=== PATIENT | male | born 1940 | race Caucasian/White ===

== ENCOUNTER → 2017-12-25 | Outpatient (REF) | payer MEDICARE ==
[2017-12-25 18:45] LABS: APPEARANCE, URINE CLEAR (CLEAR); BACTERIA, URINE AUTO NEGATIVE (NEGATIVE); BILIRUBIN, URINE AUTO NEGATIVE (NEGATIVE); BLOOD, URINE BLOOD NEGATIVE (NEGATIVE); COLOR, URINE YELLOW (YELLOW); GLUCOSE, URINE (UA) AUTO NEGATIVE (NEGATIVE); KETONE, URINE AUTO NEGATIVE (NEGATIVE); LEUKOCYTE ESTERASE, URINE AUTO NEGATIVE (NEGATIVE); NITRITE, URINE AUTO NEGATIVE (NEGATIVE); PROTEIN, URINE AUTO NEGATIVE (NEGATIVE); RBC, URINE AUTO 2 /HPF (0-3); SPECIFIC GRAVITY URINE AUTO 1.012 (1.002-1.035); SQUAMOUS EPITHELIAL CELL UR AU 0 /HPF (0-6); UROBILINOGEN, URINE AUTO 0.2 mg/dL (0.0-2.0); WBC, URINE AUTO 0 /HPF (0-3)
== END ==
LOC: M LAB REF 17:07
DX: R97.20 Elevated prostate specific antigen [PSA] (principal)
CPT/HCPCS: 81001

== ENCOUNTER → 2018-12-06 | Outpatient (REF) | payer MEDICARE | LOC: M LAB REF 11:40 | PROVIDERS: ATTEND Nurse Practitioner Family | DX: N39.0 Urinary tract infection, site not specified (principal) ==

== ENCOUNTER → 2019-10-22 | Outpatient (REF) | payer MEDICARE | LOC: M LAB REF 13:56 | PROVIDERS: ATTEND Physician Assistant Medical | DX: F32.89 Other specified depressive episodes (principal) ==

== ENCOUNTER → 2020-01-01 | Outpatient (CLI) | payer MEDICARE ==
[~2020-01-01] MED LIST: GASTROGRAFIN SOLUTION 30ML (Q9963) As Ordered ONE; ISOVUE-370 76% 100ML VIAL As Ordered ONE
--- NOTE | 2020-01-01 16:58 | REP ---
INDICATION: ABNORMAL XRAY, POSSIBLE SMALL BOWEL OBSTRUCTION. Degenerative changes in the lumbar lower thoracic spine, there posterior elements but without compression fracture or destructive lesion. Visualized ribs intact. Sacrum pelvis and hips show mild degenerative change without destructive lesion. COMPARISON: CT without 12/26/2015. TECHNIQUE: CT abdomen and pelvis performed without IV contrast. CT abdomen pelvis performed with IV contrast as well, following intravenous administration of 100 cc of Isovue 370. Sagittal, coronal and 3D MIP reconstruction images are performed. Oral Gastrografin mixture per our protocol used for bowel contrast. FINDINGS: Lung bases: Unremarkable. Liver: A few subcentimeter hypodensities are scattered in the liver too small to characterize but consistent with benign findings. Per radiologic consents is, no follow up needed for these. No biliary dilatation or adjacent ascites. Gallbladder: Unremarkable. Spleen: Normal. Adrenals: Normal. Pancreas: Normal. Kidneys: There is no hydronephrosis, stone or solid mass. There are small cysts in the right kidney and extrarenal pelvis bilaterally. Small and large bowel: Prior of hiatal hernia repair with surgical clips again seen. Stomach well distended with oral contrast. Proximal small bowel loops are contrast filled with few air-fluid levels. There is interposition of small bowel loops and hepatic flexure between the anterior margin of the liver in the anterior lower chest wall. This is unchanged. No right upper quadrant there is a loop of small bowel with the focal stricture best seen on image 72 be on which caliber change of small bowel is noted. This suggest a stricture and ileus or partial bowel obstruction. Small bowel loops are up to 3.7 cm in diameter and a few shows slightly thickened castrejon. These are centrally in the region of the umbilicus. Or distal loops have normal caliber and or fluid-filled without distention. There is diverticulosis of the distal left colon and sigmoid without diverticulitis. I see no colitis, colonic stricture or mass. Scattered stool and gas in the colon without dilatation those loops. Free fluid: There is no ascites and no evidence of perforation or free air. No pneumatosis. Adenopathy: None. Appendix: No inflammatory changes about the right colon and cecum. Appendix not definitely visualized. Osseous structures: There are degenerative changes in the spine greatest at L4-5 and largest syndesmophytes and osteophytes in the lower thoracic region. No destructive lesion or compression deformity. Some facet arthritis. Minor degenerative changes sacrum pelvis and hips. Pelvis: No pelvic mass or free fluid prostate enlarged indenting the bladder base. No distal ureteral dilatation or stone. No colonic or sigmoid diverticulosis/diverticulitis. Normal caliber small bowel loops of the ileum and distal ileum. Proximal ileum and jejunum with mildly dilated loops. Fullness of the right inguinal canal with omental fat but no bowel herniation. Small bowel loops are noted at the superior end of the right inguinal canal but not entering it or obstructing. IMPRESSION: 1. Proximal small bowel loops are mildly dilated. There is a moderate retained fluid in the stomach from oral contrast a mild stricture is seen in the right abdomen on image 72 of series 3 L1 beyond which small bowel loops have more normal caliber. Few of the proximal loops have some wall thickening or edema. No mass or adenopathy. There is colonic and small bowel loops interposition between the anterior upper abdominal/chest wall and right lobe of the liver as a common anatomic variant. 2. Omental fat distending the left inguinal canal without bowel herniation. Loops of small-bowel near the proximal right inguinal canal without evidence for obstruction. No ventral hernia. 3. Prior hiatal hernia surgery. No other significant finding. <Electronically signed by Shad Loera > 01/01/20 [id number]
== END ==
LOC: M RAD 13:14
PROVIDERS: ATTEND Internal Medicine Gastroenterology
DX: K56.609 Unspecified intestinal obstruction, unspecified as to partial versus complete obstruction (principal)
CPT/HCPCS: 74178; Q9963; Q9967

== ENCOUNTER → 2020-01-01 | Outpatient (CLI) | payer MEDICARE | LOC: M LABSMTC 12:43 | PROVIDERS: ATTEND Internal Medicine Gastroenterology | DX: Z20.828 Contact with and (suspected) exposure to other viral communicable diseases (principal) ==

== ENCOUNTER → 2020-09-21 | Outpatient (CLI) | payer MEDICARE ==
--- NOTE | 2020-09-21 16:37 | REP ---
INDICATION: PAIN. COMPARISON: None. TECHNIQUE: Five views FINDINGS: The bones are demineralized. The lateral view suggests possible talar compression, however, it is not a perfect lateral. The mortise is intact. There is diffuse soft tissue swelling. There is a small plantar calcaneal heel spur. IMPRESSION: Findings and limitations as described above. I cannot completely rule out the possibility of an age undetermined talar compression fracture. CT is recommended. <Electronically signed by David Monroe > 09/21/20 [id number]
--- NOTE | 2020-09-21 17:02 | REP ---
INDICATION: PAIN. COMPARISON: CTA/P 01/01/2020 in bone window settings.. TECHNIQUE: Five views FINDINGS: These five views of the lumbosacral spine show showed Marshall degenerative disc change with discogenic endplate sclerosis and vacuum phenomenon at L4-5 with severe narrowing of the disc space. There is extensive facet arthropathy at L4-5 and L5-S1 slightly less at L3-4 disc space is narrowed at all other levels to a mild degree. No compression deformity or destructive lesion. There are vascular calcifications of the aorta iliac region. Multiple metallic surgical fasteners coiled spring appearance at the GE junction on the left. Likely related to hernia surgery. These are unchanged from the prior CT pedicles, spinous and transverse processes are grossly intact there is some levoconvex curve at the L4-5 level. See no compression deformity or destructive lesion in the spine. SI joints show some sclerosis the iliac greater than sacral margin and right greater than left. The bones are demineralized. IMPRESSION: Degenerative facet and degenerative disc changes throughout the lumbar spine as described, greatest at the L4-5 level. There is certainly progression at the L4-5 with discogenic endplate sclerosis and spurring greater than on the CT in January 16. No compression deformities. Bones demineralized. <Electronically signed by Shad Loera > 09/21/20 [id number]
== END ==
LOC: M WUC 15:22
PROVIDERS: ATTEND Physician Assistant Medical
DX: M25.572 Pain in left ankle and joints of left foot (principal); M51.36 Other intervertebral disc degeneration, lumbar region; M51.37 Other intervertebral disc degeneration, lumbosacral region; M25.78 Osteophyte, vertebrae

== ENCOUNTER → 2020-10-05 | Outpatient (CLI) | payer MEDICARE ==
[2020-10-05 15:32] LABS: BASO % 0.5 % (0.0-1.0); EOS # 0.3 10^3/uL (0.0-0.5); EOS % 4.8 % (0.0-3.0); HEMATOCRIT 38.9 % (42.0-52.0); HEMOGLOBIN 12.5 g/dl (13.5-17.5); LYMPH % 14.7 % (24.0-44.0); MEAN CORPUSCULAR HEMOGLOBIN 33.6 pg (27.0-33.0); MEAN CORPUSCULAR HGB CONC 32.1 g/dl (32.0-36.5); MEAN CORPUSCULAR VOLUME 104.6 fl (80.0-96.0); MONO # 0.5 10^3/uL (0.0-0.8); MONO % 8.3 % (2.0-8.0); NEUTROPHILS # 4.6 10^3/uL (1.5-8.5); NEUTROPHILS % 71.5 % (36.0-66.0); PLATELET COUNT, AUTOMATED 135 10^3/uL (150-450); RED BLOOD COUNT 3.72 10^6/uL (4.30-6.10); WHITE BLOOD COUNT 6.5 10^3/uL (4.0-10.0)
[2020-10-05 16:05] LABS: C REACTIVE PROTEIN QUANTITATIV < 0.30 MG/DL (0.00-0.30); URIC ACID 6.3 MG/DL (3.5-7.2)
[2020-10-05 16:07] LABS: ERYTHROCYTE SEDIMENTATION RATE 12 mm/hr (0-20)
[2020-10-06 09:40] LABS: RHEUMATOID FACTOR QUANT < 10.0 IU/ML (<15.0)
[2020-10-07 20:09] LABS: Lyme Disease IgG/IgM Antibodie <0.91 ISR (0.00-0.90); Lyme Disease IgM Ab Quantitati <0.80 index (0.00-0.79)
== END ==
LOC: M LAB 14:22
PROVIDERS: ATTEND Physician Assistant
DX: M25.572 Pain in left ankle and joints of left foot (principal)

== ENCOUNTER → 2021-08-05 | Outpatient (REF) | payer MEDICARE | LOC: M LAB REF 16:08 | PROVIDERS: ATTEND Internal Medicine | DX: F32.9 Major depressive disorder, single episode, unspecified (principal) ==

== ENCOUNTER → 2021-09-06 | Outpatient (CLI) | payer MEDICARE | LOC: M RAD 11:14 | DX: M54.16 Radiculopathy, lumbar region (principal) ==

== ENCOUNTER → 2021-09-24 | Outpatient (REF) | payer MEDICARE | LOC: M LAB REF 12:39 | PROVIDERS: ATTEND Registered Nurse | DX: M54.50 Low back pain, unspecified (principal) ==

== ENCOUNTER → 2021-11-22 | Outpatient (REF) | payer MEDICARE | LOC: M LAB REF 16:00 | PROVIDERS: ATTEND Internal Medicine | DX: F32.89 Other specified depressive episodes (principal); Z51.81 Encounter for therapeutic drug level monitoring ==

== ENCOUNTER → 2022-01-04 | Outpatient (CLI) | payer MEDICARE ==
[~2022-01-04] MED LIST changes: -GASTROGRAFIN SOLUTION 30ML (Q9963) As Ordered ONE; +GASTROGRAFIN SOLUTION 30ML As Ordered ONE
== END ==
LOC: M RAD 07:51
PROVIDERS: ATTEND Internal Medicine Gastroenterology
DX: R14.0 Abdominal distension (gaseous) (principal)
CPT/HCPCS: 74177; Q9963; Q9967

== ENCOUNTER → 2022-02-07 | Outpatient (REF) | payer MEDICARE ==
[2022-02-07 16:40] LABS: APPEARANCE, URINE MANUAL CLEAR (CLEAR); COLOR, URINE MANUAL YELLOW (YELLOW); SPECIFIC GRAVITY,URINE MANUAL 1.015 (1.002-1.035)
[2022-02-07 16:41] LABS: BILIRUBIN, URINE MANUAL NEGATIVE (NEGATIVE); BLOOD URINE MANUAL NEGATIVE (NEGATIVE); GLUCOSE, URINE (UA) MANUAL NEGATIVE (NEGATIVE); KETONE, URINE MANUAL NEGATIVE (NEGATIVE); LEUKOCYTE ESTERASE, URINE MAN NEGATIVE (NEGATIVE); NITRITE, URINE MANUAL NEGATIVE (NEGATIVE); PROTEIN, URINE MANUAL TRACE mg/dL (NEGATIVE); UROBILINOGEN, URINE MANUAL NORMAL (NORMAL)
[2022-02-07 17:15] LABS: BACTERIA, URINE NONE SEEN; HYALINE CAST, URINE NONE SEEN /lpf (0-1); RBC, URINE NONE SEEN /hpf (0-3); SQUAMOUS EPITHELIAL CELL URINE SMALL AMOUNT /hpf (SMALL AMT); WBC, URINE NONE SEEN /hpf (0-3)
== END ==
LOC: M LAB REF 16:06
PROVIDERS: ATTEND Internal Medicine
DX: Z01.818 Encounter for other preprocedural examination (principal); F32.89 Other specified depressive episodes; Z79.899 Other long term (current) drug therapy

== ENCOUNTER → 2022-04-21 | Outpatient (CLI) | payer MEDICARE | LOC: M RAD 14:05 | PROVIDERS: ATTEND Internal Medicine | DX: G45.3 Amaurosis fugax (principal) ==

== ENCOUNTER → 2022-05-03 | Outpatient (REF) | payer MEDICARE ==
[2022-05-03 18:07] LABS: APPEARANCE, URINE CLEAR (CLEAR); BACTERIA, URINE AUTO NEGATIVE (NEGATIVE); BILIRUBIN, URINE AUTO NEGATIVE (NEGATIVE); BLOOD, URINE BLOOD 3+ (NEGATIVE); COLOR, URINE YELLOW (YELLOW); GLUCOSE, URINE (UA) AUTO NEGATIVE (NEGATIVE); KETONE, URINE AUTO NEGATIVE (NEGATIVE); LEUKOCYTE ESTERASE, URINE AUTO NEGATIVE (NEGATIVE); NITRITE, URINE AUTO NEGATIVE (NEGATIVE); PROTEIN, URINE AUTO NEGATIVE (NEGATIVE); RBC, URINE AUTO 173 /HPF (0-3); SPECIFIC GRAVITY URINE AUTO 1.012 (1.002-1.035); SQUAMOUS EPITHELIAL CELL UR AU 0 /HPF (0-6); UROBILINOGEN, URINE AUTO 0.2 mg/dL (0.0-2.0); WBC, URINE AUTO 17 /HPF (0-3)
== END ==
LOC: M LAB REF 17:03
PROVIDERS: ATTEND Internal Medicine
DX: R35.1 Nocturia (principal); R31.9 Hematuria, unspecified

== ENCOUNTER → 2022-05-12 | Outpatient (CLI) | payer MEDICARE | LOC: M PLARAD 10:55 | PROVIDERS: ATTEND Internal Medicine | DX: G45.3 Amaurosis fugax (principal); R55 Syncope and collapse ==

== ENCOUNTER 2022-11-25 13:03 | Day surgery (SDC) | payer MEDICARE ==
[2022-11-25] VITALS (7 sets, daily range): BP systolic 127–149; BP diastolic 69–85; TEMP 96.5–97.7; O2SAT 92–97
[~2022-11-25] VITALS: Ht 175.3 cm; Wt 84.0 kg
[~2022-11-25 13:03] MED LIST changes: +**UNRESOLVED NON-FORMULARY MED ORDER XX SCH; +ALFU10TA3 PO; +BIOT1CAP2 PO; +CIDA500T2 PO; +CLAR10CA3 PO; +FLON1SPR; -GASTROGRAFIN SOLUTION 30ML As Ordered ONE; -ISOVUE-370 76% 100ML VIAL As Ordered ONE; +LITH300C PO; +VITA200012 PO; +VITAMIN C GUMMY PO; +ceFAZolin SOD 2 GM in IV 1 EA IV ONE; +prevagen PO
[2022-11-25] MEDS ORDERED: BAYE1TAB2 PO (13:39)
[2022-11-25] MEDS ORDERED: LR 1,000 ML IV SCH ×2 (13:55→17:35)
[2022-11-25] MEDS ORDERED: fentaNYL 100 MCG/2 ML INJECTION As Ordered ONE (15:09)
[2022-11-25] MEDS ORDERED: MIDAZOLAM INJ 2MG/2ML VIAL As Ordered ONE (15:10)
[2022-11-25] MEDS ORDERED: ONDANSETRON 4MG 2ML VIAL As Ordered ONE (15:10)
[2022-11-25] MEDS ORDERED: LIDOCAINE 2% 100MG/5ML SDV (FOR ANES.) As Ordered ONE (15:10)
[2022-11-25] MEDS ORDERED: propofoL 200 MG/20 ML VIAL As Ordered ONE ×2 (15:10→17:27)
[2022-11-25] MEDS ORDERED: LIDOCAINE 1% MDV 20ML VIAL As Ordered ONE (15:16)
[2022-11-25] MEDS ORDERED: ISOVUE-300 61% 100ML VIAL As Ordered ONE (15:17)
[2022-11-25] MEDS ORDERED: MUPIROCIN 2% OINT 22 GM TUBE As Ordered ONE (15:17)
[2022-11-25] MEDS ORDERED: ACETAMINOPHEN 1000MG 100ML IV BAG As Ordered ONE (15:58)
[2022-11-25] MEDS ORDERED: fentaNYL 100 MCG/2 ML INJECTION IV PRN (17:35)
[2022-11-25] MEDS ORDERED: ONDANSETRON 4MG 2ML VIAL IV PRN ×2 (17:35→18:50)
[2022-11-25] MEDS ORDERED: HYDROMORPHONE HCL 0.5 MG/ 0.5 ML SYRINGE IV PRN (17:35)
[2022-11-25] MEDS ORDERED: oxyCODONE 5MG TAB PO PRN (17:35)
[2022-11-25] MEDS ORDERED: ACETAMINOPHEN TAB 650MG DOSE (2X325MG) PO PRN (18:50)
[2022-11-26 04:41] VITALS: BP 162/81; TEMP 97.1; O2SAT 92
[2022-11-26 07:46] VITALS: BP 144/68; TEMP 96.9; O2SAT 98
[2022-11-26] MEDS ORDERED: CYANOCOBALAMIN 500 MCG TAB PO SCH (09:00)
[2022-11-26] MEDS ORDERED: LITHIUM CARBONATE 300 MG CAP PO SCH (21:00)
== END 2022-11-26 11:57 | disposition home or self-care (01) ==
LOC: M SDC 13:03 → M PCU 18:35 → M SDC 11-26 11:57
PROVIDERS: ATTEND Internal Medicine Cardiovascular Disease
DX: I49.5 Sick sinus syndrome (principal); Z79.899 Other long term (current) drug therapy; Z79.82 Long term (current) use of aspirin
CPT/HCPCS: 33208; 71045; 71046; 76000; 87635; 93005; C1785; C1898; J0131; J0690; J2250; J2405; J3010; Q9967

== ENCOUNTER → 2023-01-05 | Outpatient (REF) | payer MEDICARE ==
[~2023-01-05] MED LIST changes: -**UNRESOLVED NON-FORMULARY MED ORDER XX SCH; +BAYE1TAB2 PO; -ceFAZolin SOD 2 GM in IV 1 EA IV ONE
== END ==
LOC: M LAB REF 16:34
PROVIDERS: ATTEND Internal Medicine
DX: E03.9 Hypothyroidism, unspecified (principal)

== ENCOUNTER → 2023-07-07 | Outpatient (REF) | payer MEDICARE | LOC: M LAB REF 16:28 | PROVIDERS: ATTEND Internal Medicine | DX: F32.89 Other specified depressive episodes (principal) ==

== ENCOUNTER → 2023-07-18 | Outpatient (REF) | payer MEDICARE | LOC: M LAB REF 11:35 | PROVIDERS: ATTEND Internal Medicine | DX: F32.89 Other specified depressive episodes (principal) ==

== ENCOUNTER → 2023-08-22 | Outpatient (REF) | payer MEDICARE | LOC: M LAB REF 11:44 | PROVIDERS: ATTEND Internal Medicine | DX: F32.89 Other specified depressive episodes (principal) ==

== ENCOUNTER → 2023-11-21 | Outpatient (REF) | payer MEDICARE ==
[~2023-11-21] MED LIST changes: +ALFU10TA23 PO; -ALFU10TA3 PO
[2023-11-23 18:38] LABS: T P ELECTROPHORESIS SO 7.8 g/dL (6.1-8.1)
[2023-11-27 08:03] LABS: ALBUMIN SPEP 4.8 g/dL (3.8-4.8); ALPHA-1-GLOBULINS SO 0.3 g/dL (0.2-0.3); ALPHA-2-GLOBULINS SO 0.8 g/dL (0.5-0.9); BETA 2 GLOBULIN 0.4 g/dL (0.2-0.5); BETA-GLOBULIN SO 0.5 g/dL (0.4-0.6)
[2023-11-27 15:01] LABS: ALKALINE PHOSPHATASE ISO-MACR0 0 % (<=0); ALKALINE PHOSPHATASE ISO-PLAC 0 % (<=0); Alkaline Phosphatase Iso-Bone 59 % (28-66); Alkaline Phosphatase Iso-Intes 0 % (1-24); Alkaline Phosphatase Iso-Liver 41 % (25-69); TOTAL ALK PHOS 115 U/L (35-144)
== END ==
LOC: M LAB REF 16:51
PROVIDERS: ATTEND Internal Medicine
DX: R74.8 Abnormal levels of other serum enzymes (principal)

== ENCOUNTER → 2023-11-27 | Outpatient (CLI) | payer MEDICARE | LOC: M PLAIMG 12:39 | PROVIDERS: ATTEND Psychiatry & Neurology Neurology | DX: R41.1 Anterograde amnesia (principal); R53.1 Weakness; Z86.16 Personal history of COVID-19; G31.9 Degenerative disease of nervous system, unspecified ==

== ENCOUNTER → 2024-01-03 | Outpatient (REF) | payer MEDICARE ==
[2024-01-04 09:58] LABS: IRON (FE) 55 UG/DL (65-175); PERCENT SATURATION 19.1 % (19.7-50.0); TOTAL IRON BINDING CAPACITY 288 UG/DL (250-425)
[2024-01-04 09:59] LABS: FERRITIN 190.5 NG/ML (10.5-307.3)
[2024-01-04 10:00] LABS: FOLATE > 24.00 NG/ML (>5.4); VITAMIN B12 LEVEL 1924 PG/ML (211-911)
[2024-01-05 08:37] LABS: PROTEIN, TOTAL SO 6.4 g/dL (6.1-8.1)
[2024-01-08 13:18] LABS: ALBUMIN SO 3.9 g/dL (3.8-4.8); ALPHA 1 GLOBULINS SO 0.3 g/dL (0.2-0.3); ALPHA 2 GLOBULINS SO 0.7 g/dL (0.5-0.9); BETA 2 GLOBULIN SO 0.4 g/dL (0.2-0.5); BETA GLOBULIN SO 0.4 g/dL (0.4-0.6); GAMMA GLOBULINS SO 0.8 g/dL (0.8-1.7)
== END ==
LOC: M LAB REF 16:48
PROVIDERS: ATTEND Internal Medicine
DX: R74.8 Abnormal levels of other serum enzymes (principal); D64.9 Anemia, unspecified

== ENCOUNTER 2024-01-18 16:00 | Emergency (ER) | payer MEDICARE ==
[~2024-01-18] VITALS: Ht 175.3 cm; Wt 81.3 kg
[2024-01-18 19:54] VITALS: BP 140/76; TEMP 97.5; O2SAT 98
[2024-01-18] MEDS ORDERED: MIRA3350 PO (20:19)
== END 2024-01-18 20:36 | disposition home or self-care (01) ==
LOC: M ED 16:00
DX: K59.00 Constipation, unspecified (principal); R14.0 Abdominal distension (gaseous); Z79.899 Other long term (current) drug therapy; Z79.82 Long term (current) use of aspirin

== ENCOUNTER 2024-01-20 14:07 | Observation (INO) | payer MEDICARE ==
[~2024-01-20 14:07] MED LIST changes: +MIRA3350 PO
[2024-01-20 16:07] LABS: BASO % 0.2 % (0.0-1.0); EOS % 0.4 % (0.0-3.0); HEMATOCRIT 39.9 % (42.0-52.0); HEMOGLOBIN 12.8 g/dl (13.5-17.5); LYMPH # 0.8 10^3/uL (1.5-5.0); LYMPH % 9.4 % (24.0-44.0); MEAN CORPUSCULAR HEMOGLOBIN 34.2 pg (27.0-33.0); MEAN CORPUSCULAR HGB CONC 32.1 g/dl (32.0-36.5); MEAN CORPUSCULAR VOLUME 106.7 fl (80.0-96.0); MONO # 0.6 10^3/uL (0.0-0.8); MONO % 6.8 % (2.0-8.0); NEUTROPHILS # 6.7 10^3/uL (1.5-8.5); NEUTROPHILS % 82.8 % (36.0-66.0); PLATELET COUNT, AUTOMATED 159 10^3/uL (150-450); RED BLOOD COUNT 3.74 10^6/uL (4.30-6.10); WHITE BLOOD COUNT 8.1 10^3/uL (4.0-10.0)
[2024-01-20] MEDS: GASTROGRAFIN SOLUTION 30ML PO SCH (16:27)
[2024-01-20 16:40] LABS: LIPASE 32 U/L (12-53)
[2024-01-20 16:42] LABS: LITHIUM LEVEL 1.26 MMOL/L (1.0-1.20)
[2024-01-20 16:43] LABS: ALBUMIN 3.8 G/DL (3.2-5.2); ALKALINE PHOSPHATASE 136 U/L (40-129); ALT/SGPT 24 U/L (7.0-40); AST/SGOT 19 U/L (<34); BILIRUBIN,DIRECT 0.2 MG/DL (<0.4); BILIRUBIN,TOTAL 0.7 MG/DL (0.3-1.2); BLOOD UREA NITROGEN 22 MG/DL (9-23); CALCIUM LEVEL 10.6 MG/DL (8.3-10.6); CARBON DIOXIDE LEVEL 25 MMOL/L (20-31); CHLORIDE LEVEL 106 MMOL/L (98-107); CREATININE FOR GFR 1.21 MG/DL (0.70-1.30); GLOMERULAR FILTRATION RATE > 60.0 (>35); GLUCOSE, FASTING 118 MG/DL (74-106); POTASSIUM SERUM 4.2 MMOL/L (3.5-5.1); SODIUM LEVEL 139 MMOL/L (136-145); TOTAL PROTEIN 7.2 G/DL (5.7-8.2)
[2024-01-20] MEDS ORDERED: ISOVUE-370 76% 100ML VIAL As Ordered ONE (17:41)
[2024-01-20] MEDS ORDERED: FLEET ENEMA PR ONE (18:50)
[2024-01-20] MEDS: FLEET OIL RETENTION ENEMA PR PRN (19:37)
[2024-01-20] MEDS ORDERED: ESSETAB4 PO (21:50)
[2024-01-20] MEDS ORDERED: B-1225002 SL (21:50)
[2024-01-20] MEDS ORDERED: HOME MED LIST COMPLETE! XX SCH ×2 (21:55→23:20)
[2024-01-20] MEDS ORDERED: ACETAMINOPHEN 325 MG TAB PO PRN (22:05)
[2024-01-20] MEDS ORDERED: LITH300T PO (23:19)
[2024-01-21] MEDS: FLEET ENEMA PR SCH
[2024-01-21] MEDS: MIRALAX *UNIT DOSE* 17GM PACKET PO SCH (00:15)
[2024-01-21 07:33] LABS: ALBUMIN 3.6 G/DL (3.2-5.2); ALKALINE PHOSPHATASE 129 U/L (40-129); ALT/SGPT 24 U/L (7.0-40); AST/SGOT 18 U/L (<34); BILIRUBIN,TOTAL 0.8 MG/DL (0.3-1.2); BLOOD UREA NITROGEN 22 MG/DL (9-23); CALCIUM LEVEL 10.1 MG/DL (8.3-10.6); CARBON DIOXIDE LEVEL 24 MMOL/L (20-31); CHLORIDE LEVEL 107 MMOL/L (98-107); CREATININE FOR GFR 1.22 MG/DL (0.70-1.30); GLOMERULAR FILTRATION RATE > 60.0 (>35); GLUCOSE, FASTING 209 MG/DL (74-106); POTASSIUM SERUM 4.3 MMOL/L (3.5-5.1); SODIUM LEVEL 138 MMOL/L (136-145); TOTAL PROTEIN 6.8 G/DL (5.7-8.2)
[2024-01-21] MEDS ORDERED: MIRA33506 PO (07:45)
[2024-01-21] MEDS ORDERED: COLA100C5 PO (07:45)
[2024-01-21] MEDS ORDERED: ENOXAPARIN 40MG/0.4ML SYRINGE (J1650 PER 10MG) SC SCH (09:00)
[2024-01-21 09:14] VITALS: BP 130/65; TEMP 97.5; O2SAT 97
[2024-01-21] MEDS: DOCUSATE SODIUM 100MG CAPSULE PO SCH (10:52)
== END 2024-01-21 12:15 | disposition home or self-care (01) ==
LOC: M ED 14:07 → EDBD 14:07 → M ED INP 14:08
PROVIDERS: ADMIT Student in an Organized Health Care Education/Training Program; ATTEND Student in an Organized Health Care Education/Training Program
DX: K59.04 Chronic idiopathic constipation (principal); I49.5 Sick sinus syndrome; Z95.0 Presence of cardiac pacemaker; M48.00 Spinal stenosis, site unspecified; F31.9 Bipolar disorder, unspecified; Z87.891 Personal history of nicotine dependence; K56.41 Fecal impaction; Z79.899 Other long term (current) drug therapy
CPT/HCPCS: 36415; 74177; 80048; 80053; 80076; 80178; 81001; 83690; 85025; 93005; 93041; 99285; G0378; Q9963; Q9967

== ENCOUNTER → 2024-09-24 | Outpatient (REF) | payer MEDICARE ==
[~2024-09-24] MED LIST changes: +B-1225002 SL; +COLA100C5 PO; +ESSETAB4 PO; +LITH300T PO; +MIRA33506 PO
[2024-09-24 14:16] LABS: APPEARANCE, URINE CLEAR (CLEAR); BACTERIA, URINE AUTO NEGATIVE (NEGATIVE); BILIRUBIN, URINE AUTO NEGATIVE (NEGATIVE); BLOOD, URINE BLOOD NEGATIVE (NEGATIVE); GLUCOSE, URINE (UA) AUTO NEGATIVE (NEGATIVE); KETONE, URINE AUTO NEGATIVE (NEGATIVE); LEUKOCYTE ESTERASE, URINE AUTO NEGATIVE (NEGATIVE); NITRITE, URINE AUTO NEGATIVE (NEGATIVE); PROTEIN, URINE AUTO NEGATIVE (NEGATIVE); RBC, URINE AUTO 0 /HPF (0-3); SPECIFIC GRAVITY URINE AUTO 1.011 (1.002-1.035); SQUAMOUS EPITHELIAL CELL UR AU 0 /HPF (0-6); UROBILINOGEN, URINE AUTO 0.2 mg/dL (0.0-2.0); WBC, URINE AUTO 0 /HPF (0-3)
[2024-09-24 14:26] LABS: INR 0.96
== END ==
LOC: M LAB REF 14:01
PROVIDERS: ATTEND Internal Medicine
DX: Z01.818 Encounter for other preprocedural examination (principal); Z79.899 Other long term (current) drug therapy

== ENCOUNTER 2024-10-11 14:07 | Emergency (ER) | payer MEDICARE ==
[~2024-10-11] VITALS: Ht 175.3 cm; Wt 78.6 kg
[2024-10-11 14:15] VITALS: TEMP 97.3
[2024-10-11] MEDS: FUROSEMIDE 40 MG/4 ML VIAL IV ONE (18:56)
[2024-10-11] MEDS: ceFAZolin SOD 1 GM in DEXTROSE 5% (D5W) ADV/MINI-BAG 50 ML IV ONE (18:56)
[2024-10-11 19:16] LABS: ALT/SGPT 27.0 U/L (7.0-40); AST/SGOT 28.0 U/L (<34)
[2024-10-11 19:30] VITALS: BP 153/85
[2024-10-11 19:37] VITALS: O2SAT 99
[2024-10-11 19:37] LABS: LITHIUM LEVEL 1.16 MMOL/L (1.0-1.20)
[2024-10-11 19:39] LABS: INR 1.06
[2024-10-11] MEDS ORDERED: CEPH500C PO (19:51)
== END 2024-10-11 20:02 | disposition left against medical advice (07) ==
LOC: M ED 14:07
DX: R22.43 Localized swelling, mass and lump, lower limb, bilateral (principal); L03.115 Cellulitis of right lower limb; I45.81 Long QT syndrome; F31.9 Bipolar disorder, unspecified; Z79.2 Long term (current) use of antibiotics; Z79.82 Long term (current) use of aspirin; Z79.899 Other long term (current) drug therapy; Z53.9 Procedure and treatment not carried out, unspecified reason
CPT/HCPCS: 36415; 71045; 80047; 80076; 80178; 85610; 85730; 87040; 93005; 93041; 93970; 96365; 96375; 99284; J0690; J1938

== ENCOUNTER → 2024-10-15 | Outpatient (REF) | payer MEDICARE ==
[~2024-10-15] MED LIST changes: +CEPH500C PO
== END ==
LOC: M LAB REF 17:45
PROVIDERS: ATTEND Internal Medicine
DX: L03.818 Cellulitis of other sites (principal)

== ENCOUNTER → 2024-11-19 | Outpatient (REF) | payer MEDICARE | LOC: M LAB REF 14:46 | PROVIDERS: ATTEND Internal Medicine | DX: R79.82 Elevated C-reactive protein (CRP) (principal) ==

== ENCOUNTER 2025-01-02 19:28 | Observation (INO) | payer MEDICARE ==
[~2025-01-02] VITALS: Ht 175.3 cm; Wt 79.5 kg
[2025-01-02] MEDS: ACETAMINOPHEN *IV* 1,000 MG in IV 1 EA IV ONE (21:38)
[2025-01-02 21:40] LABS: BASO # 0.0 10^3/uL (0.0-0.2); BASO % 0.3 % (0.0-1.0); EOS # 0.2 10^3/uL (0.0-0.5); EOS % 2.2 % (0.0-3.0); LYMPH # 0.8 10^3/uL (1.5-5.0); LYMPH % 8.2 % (24.0-44.0); MONO # 0.9 10^3/uL (0.0-0.8); MONO % 9.2 % (2.0-8.0); NEUTROPHILS # 7.7 10^3/uL (1.5-8.5); NEUTROPHILS % 79.7 % (36.0-66.0); PLATELET COUNT, AUTOMATED 143 10^3/uL (150-450)
[2025-01-02 21:51] LABS: KETONE, URINE AUTO RFX NEGATIVE (NEGATIVE); MUCUS, URINE RFX SMALL (NEGATIVE); NITRITE, URINE AUTO RFX NEGATIVE (NEGATIVE); RBC, URINE AUTO RFX 1 /HPF (0-3); SQUAM EPITHELIAL CELL UR AURFX 0 /HPF (0-6); WBC, URINE AUTO RFX 3 /HPF (0-3)
[2025-01-02 21:52] LABS: LEUKOCYTE ESTERASE UR AUTO RFX TRACE (NEGATIVE)
[2025-01-02 22:02] LABS: ALT/SGPT 28.0 U/L (7.0-40); AST/SGOT 29.0 U/L (<34); CALCIUM LEVEL 9.0 MG/DL (8.3-10.6); CARBON DIOXIDE LEVEL 24.0 MMOL/L (20-31); CHLORIDE LEVEL 109.0 MMOL/L (98-107); CREATININE FOR GFR 1.16 MG/DL (0.70-1.30); GLOMERULAR FILTRATION RATE 61.7 (>35); POTASSIUM SERUM 4.5 MMOL/L (3.5-5.1); SODIUM LEVEL 142.0 MMOL/L (136-145)
[2025-01-02 22:04] LABS: FREE T4 0.86 NG/DL (0.89-1.76)
[2025-01-02 22:20] LABS: LITHIUM LEVEL 1.46 MMOL/L (1.0-1.20)
[2025-01-02] MEDS: NS (Normal Saline) 0.9% 1,000 ML IV ONE (22:55)
[2025-01-02] MEDS: MECLIZINE 25 MG TABLET PO ONE (23:35)
[2025-01-03 03:32] VITALS: BP 152/89; TEMP 98.6; O2SAT 97
[2025-01-03 07:22] LABS: BASO # 0.0 10^3/uL (0.0-0.2); BASO % 0.3 % (0.0-1.0); EOS # 0.4 10^3/uL (0.0-0.5); EOS % 6.2 % (0.0-3.0); LYMPH # 0.7 10^3/uL (1.5-5.0); LYMPH % 11.2 % (24.0-44.0); MONO # 0.7 10^3/uL (0.0-0.8); MONO % 10.0 % (2.0-8.0); NEUTROPHILS # 4.8 10^3/uL (1.5-8.5); NEUTROPHILS % 72.0 % (36.0-66.0); PLATELET COUNT, AUTOMATED 134 10^3/uL (150-450)
[2025-01-03 07:29] LABS: CALCIUM LEVEL 8.5 MG/DL (8.3-10.6); CARBON DIOXIDE LEVEL 23.0 MMOL/L (20-31); CHLORIDE LEVEL 109.0 MMOL/L (98-107); CREATININE FOR GFR 1.03 MG/DL (0.70-1.30); GLOMERULAR FILTRATION RATE 71.2 (>35); LITHIUM LEVEL 1.25 MMOL/L (1.0-1.20); POTASSIUM SERUM 4.0 MMOL/L (3.5-5.1); SODIUM LEVEL 141.0 MMOL/L (136-145)
[2025-01-03] MEDS: CEFDINIR 300 MG CAP PO SCH (08:31)
[2025-01-03 13:30] VITALS: BP 128/80; TEMP 98.1; O2SAT 98
[2025-01-03] MEDS ORDERED: MIRA33506 PO (15:28)
[2025-01-03] MEDS ORDERED: ASCO500C3 PO (15:28)
[2025-01-03] MEDS ORDERED: MM S100C PO (15:28)
[2025-01-03] MEDS ORDERED: CVS-161 PO (15:28)
[2025-01-03] MEDS ORDERED: HOME MED LIST COMPLETE! XX SCH (15:30)
[2025-01-03 19:58] VITALS: BP 152/73; TEMP 98.7; O2SAT 95
[2025-01-03] MEDS: PANTOPRAZOLE 40MG TAB PO SCH (20:44)
[2025-01-03] MEDS: ACETAMINOPHEN 325 MG TAB PO PRN (20:44)
[2025-01-03 21:17] VITALS: BP_SYST 146; BP_SYST 149; BP_SYST 158; BP_DIAS 73; BP_DIAS 74; BP_DIAS 82
[2025-01-04 04:11] VITALS: BP 140/96; TEMP 99.2; O2SAT 97
[2025-01-04 04:24] VITALS: BP_SYST 140; BP_SYST 151; BP_DIAS 94; BP_DIAS 96; BP_DIAS 99
[2025-01-04 06:36] LABS: BASO # 0.0 10^3/uL (0.0-0.2); BASO % 0.3 % (0.0-1.0); EOS # 0.4 10^3/uL (0.0-0.5); EOS % 5.9 % (0.0-3.0); LYMPH # 1.0 10^3/uL (1.5-5.0); LYMPH % 13.8 % (24.0-44.0); MONO # 0.7 10^3/uL (0.0-0.8); MONO % 10.2 % (2.0-8.0); NEUTROPHILS # 4.8 10^3/uL (1.5-8.5); NEUTROPHILS % 69.5 % (36.0-66.0); PLATELET COUNT, AUTOMATED 146 10^3/uL (150-450)
[2025-01-04 06:57] LABS: CALCIUM LEVEL 8.4 MG/DL (8.3-10.6); CARBON DIOXIDE LEVEL 22.0 MMOL/L (20-31); CHLORIDE LEVEL 110.0 MMOL/L (98-107); CREATININE FOR GFR 1.08 MG/DL (0.70-1.30); GLOMERULAR FILTRATION RATE 67.3 (>35); LITHIUM LEVEL 1.02 MMOL/L (1.0-1.20); MAGNESIUM LEVEL 1.9 MG/DL (1.8-2.4); POTASSIUM SERUM 4.0 MMOL/L (3.5-5.1); SODIUM LEVEL 142.0 MMOL/L (136-145)
[2025-01-04] MEDS: ENOXAPARIN 40 MG/0.4 ML SYRINGE (J1650 PER 10MG) SC SCH (08:55)
[2025-01-04] MEDS ORDERED: LITH300T PO (10:26)
[2025-01-04] MEDS: LITHIUM CARBONATE **ER** 300 MG PO STA (11:10)
[2025-01-04 11:46] VITALS: BP 141/80; TEMP 98.5; O2SAT 95
== END 2025-01-04 16:06 | disposition home health service (06) ==
LOC: EDBD 19:28 → M ED 19:28 → M ED INP 19:29 → M MSPAV 01-03 03:21
PROVIDERS: ADMIT Student in an Organized Health Care Education/Training Program; ATTEND Student in an Organized Health Care Education/Training Program
DX: R29.6 Repeated falls (principal); R42 Dizziness and giddiness; F31.9 Bipolar disorder, unspecified; I49.5 Sick sinus syndrome; Z95.0 Presence of cardiac pacemaker; M48.00 Spinal stenosis, site unspecified; K59.09 Other constipation; Z96.653 Presence of artificial knee joint, bilateral; Z87.891 Personal history of nicotine dependence; E02 Subclinical iodine-deficiency hypothyroidism; D53.9 Nutritional anemia, unspecified; Z79.899 Other long term (current) drug therapy; T43.595A Adverse effect of other antipsychotics and neuroleptics, initial encounter; I35.0 Nonrheumatic aortic (valve) stenosis
CPT/HCPCS: 36415; 70450; 73502; 80048; 80053; 80178; 81001; 83735; 84439; 84443; 85025; 87086; 93005; 93306; 96365; 96366; 96372; 97116; 97161; 99285; G0378; J0134; J1650

== ENCOUNTER → 2025-01-28 | Outpatient (REF) | payer MEDICARE ==
[~2025-01-28] MED LIST changes: +ASCO500C3 PO; +CVS-161 PO; +MM S100C PO
== END ==
LOC: M LAB REF 13:48
PROVIDERS: ATTEND Internal Medicine
DX: R74.8 Abnormal levels of other serum enzymes (principal); R29.6 Repeated falls

== ENCOUNTER → 2025-02-25 | Outpatient (REF) | payer MEDICARE | LOC: M LAB REF 12:07 | PROVIDERS: ATTEND Internal Medicine | DX: D47.2 Monoclonal gammopathy (principal); Z79.899 Other long term (current) drug therapy ==